=== PATIENT | female | born 1965 | race African-American/Black ===

== ENCOUNTER 2020-04-02 07:03 | Day surgery (SDC) | payer BC ==
[2020-03-27 09:21] LABS: HEMATOCRIT 46.4 % (36.0-47.0); HEMOGLOBIN 15.4 g/dL (12.0-15.5); MEAN CORPUSCULAR HEMOGLOBIN 27.9 pg (27.0-33.4); MEAN CORPUSCULAR HGB CONC 33.2 g/dL (32.0-36.0); MEAN CORPUSCULAR VOLUME 84 fl (80-97); PLATELET COUNT 189 10^3/uL (150-450); RED BLOOD COUNT 5.52 10^6/uL (3.72-5.28); RED CELL DISTRIBUTION WIDTH 14.7 % (11.5-14.0); WHITE BLOOD COUNT 3.8 10^3/uL (4.0-10.5)
[2020-03-27 09:42] LABS: ANION GAP 11 (5-19); BLOOD UREA NITROGEN 18 mg/dL (7-20); CALCIUM 9.9 mg/dL (8.4-10.2); CARBON DIOXIDE 28 mmol/L (22-30); CHLORIDE 101 mmol/L (98-107); GLUCOSE 100 mg/dL (75-110); POTASSIUM 4.3 mmol/L (3.6-5.0)
--- NOTE | 2020-03-27 22:06 | EKG REPORT ---
SEVERITY:- NORMAL ECG - SINUS RHYTHM : Confirmed by: Nely Jama MD 27-Mar-2020 22:06:22
[~2020-04-02 07:03] MED LIST: CEFAZOLIN 1 GM/D5W RTU 1 GM/50 ML RTUPB IV ONE; CEFAZOLIN 1 GM/D5W RTU 1 GM/50 ML RTUPB IV PRN; LACTATED RINGERS 1000 ML IV PRN; LIDOCAINE 0.5% INJ-PF (5 MG/ML) 50 ML SDV SUBCUT PRN
[2020-04-02] MEDS ORDERED: METHYLENE BLUE 50 MG/10 ML AMPULE ONE (08:18)
[2020-04-02] MEDS ORDERED: MICROFIBRILLAR COLLAGEN 1 GM PACK ONE (08:18)
[2020-04-02] MEDS ORDERED: MIDAZOLAM 2 MG/2 ML INJ ONE (09:11)
[2020-04-02] MEDS ORDERED: ONDANSETRON HCL INJ/PF 4 MG/2 ML SDV ONE (09:11)
[2020-04-02] MEDS ORDERED: FENTANYL CITRATE INJ/PF 100 MCG/2 ML AMPUL ONE (09:11)
[2020-04-02] MEDS ORDERED: MORPHINE SULFATE 10 MG/ML INJ ONE (09:11)
[2020-04-02] MEDS ORDERED: DEXAMETHASONE SOD PHOSPHATE INJ 4 MG/1 ML VIAL ONE (09:11)
[2020-04-02] MEDS ORDERED: PROPOFOL INJ 200 MG/20 ML VIAL IV ONE ×2 (09:12→10:27)
[2020-04-02] MEDS ORDERED: PROMETHAZINE HCL INJ 25 MG/1 ML VIAL IV PRN ×2 (09:46)
[2020-04-02] MEDS ORDERED: FENTANYL CITRATE INJ/PF 100 MCG/2 ML AMPUL IV PRN ×3 (09:46)
[2020-04-02] MEDS ORDERED: OXYCODONE-ACETAMINOPHEN 5-325 MG TABLET PO PRN ×3 (09:46→10:25)
[2020-04-02] MEDS ORDERED: MEPERIDINE HCL/PF INJ 25 MG/1 ML DISP.SYRIN IV PRN (09:46)
[2020-04-02] MEDS ORDERED: DIPHENHYDRAMINE HCL 50 MG/ML VIAL IV PRN (09:46)
[2020-04-02] MEDS ORDERED: MORPHINE SULFATE 10 MG/ML INJ IV PRN (09:46)
--- NOTE | 2020-04-02 10:24 | Operative Report ---
Operative Report DATE OF SURGERY: 04/02/20 PREOPERATIVE DIAGNOSIS: Diffuse lymphadenopathy POSTOPERATIVE DIAGNOSIS: Same OPERATION: 1. Focused ultrasound of the right axilla. 2. Ultrasound directed right axillary lymph node excision SURGEON: CRISELDA LEYVA 1ST DIRECTOR BIOLOGICS: JEFF CHRISTIAN ANESTHESIA: LMAC TISSUE REMOVED OR ALTERED: 1 right axillary lymph node COMPLICATIONS: None ESTIMATED BLOOD LOSS: Scant INTRAOPERATIVE FINDINGS: See below PROCEDURE: Patient was seen in the preop holding area, right axilla more, then patient taken to the main operating room where LMAC anesthesia was induced. Right arm was abducted, the right axilla prepped and draped in sterile fashion Surgical plan and surgical timeout were conducted. The right axilla was scanned with a variable frequency linear transducer. Findings were significant for several enlarged lymph nodes, the largest and elongated 2-1/2 cm node in the low axilla. Markings were made on the skin above the target node, skin anesthetized 1% plain lidocaine, and a 3-1/2 to 4 cm incision was made on the low axilla against the chest wall. Using ultrasound as a real-time guide, and electrocautery, with the tissue retracted using a combination of S and [employer] retractors, we localized the enlarged lymph node in the deep subcutaneous tissue. It is approximately 6 cm below the skin. A silk suture was used to secure the node, and elevated out of the wound, and using electrocautery, the remainder the node was released from the surrounding subcutaneous tissue. The pedicle was ligated with a 2-0 Vicryl suture, node freed up, silk suture removed, and the specimen sent fresh to pathology. Wound check for hemostasis and the wound was felt to be dry. Sponge and needle counts are correct. Wound closed in layers with a 3-0 Vicryl, benzoin and Steri-Strips. Patient tolerated the procedure well, taken recovery in stable condition. The physician home health assistant, Ms. Rooney, provided assistance during this case by: Assisting with retracting tissue, instillation of local anesthesia and closure of skin incisions.
--- NOTE | 2020-04-02 10:25 | Discharge Summary ---
Discharge Summary (SDC) - Discharge Final Diagnosis: right axillary lymphadenopathy Date of Surgery: 04/02/20 Discharge Date: 04/02/20 Condition: Good Forms: ASU Anesthesia D/C Instruction, Discharge POC-Surgical Service Treatment or Instructions: TAKE MEDICATION DIRECTED SHOWER 48 HOURS AFTER SURGERY. LEAVE STERI STRIPS INTACT UNTIL THEY FALL OFF ON THEIR OWN. YOU MAY COVER WOUND WITH GAUZE AND TAPE IF IT IS MORE COMFORTABLE. FOLLOW UP WITH [facility] IN 10 DAYS DIET TOLERATED ACTIVITY TOLERATED Prescriptions: Ketorolac Tromethamine [Toradol 10 mg Tablet] 10 mg PO Q6HP PRN #15 tablet PRN Reason: Referrals: CRISELDA LEYVA MD [ACTIVE STAFF] - 04/14/20 1:00 pm Discharge Diet: As Tolerated Report the Following to Your Physician Immediately: Increase in Pain, Fever over 101 Degrees, Unusual Bleeding, Redness, Swelling, Warmth, Increased Soreness, Drainage-Foul Smelling
[2020-04-02] MEDS ORDERED: LIDOCAINE 1%/EPINEPHRINE INJ 20 ML VIAL ONE (10:39)
[2020-04-02] MEDS ORDERED: OXYCODONE-ACETAMINOPHEN 5-325 MG TABLET ONE (10:40)
[2020-04-02 12:20] VITALS: BP 117/77
== END 2020-04-02 12:15 | disposition home or self-care (01) ==
LOC: OROUT 07:03
PROVIDERS: ATTEND Surgery
DX: I89.8 Other specified noninfective disorders of lymphatic vessels and lymph nodes (principal); R73.03 Prediabetes; E78.00 Pure hypercholesterolemia, unspecified; I10 Essential (primary) hypertension; J45.909 Unspecified asthma, uncomplicated; J37.0 Chronic laryngitis; Z03.818 Encounter for observation for suspected exposure to other biological agents ruled out; Z80.3 Family history of malignant neoplasm of breast; Z79.899 Other long term (current) drug therapy; Z79.84 Long term (current) use of oral hypoglycemic drugs
CPT/HCPCS: 93005; 36415 ×2; 88185 ×15; 88184; 82947; 84132; 85027; 80048; 88233; 88262; 88305 ×2; 93010; 01610; 38525; U0003; J2250; J0690; J1100; J3010; J3490; J2405; J2704; C9803; 1610; 87635; J2270; Q9968